=== PATIENT | male | born 1950 | race Caucasian/White ===

== ENCOUNTER 2024-08-10 12:09 | Day surgery (SDC) | payer MEDICARE ==
[2024-08-06 15:06] LABS: BASOPHILS # (AUTO) 0.1 X10'3 (0-0.2); BASOPHILS % (AUTO) 0.8 % (0-1); EOSINOPHILS # (AUTO) 0.2 X10'3 (0-0.9); EOSINOPHILS % (AUTO) 1.7 % (0-6); LYMPHOCYTES # (AUTO) 2.1 X10'3 (1.1-4.8); LYMPHOCYTES % (AUTO) 23.3 % (21-51); MEAN CORPUSCULAR HEMOGLOBIN 31.5 PG (27.0-31.0); MEAN CORPUSCULAR HGB CONC 35.5 g/dL (33.0-36.5); MEAN CORPUSCULAR VOLUME 88.6 FL (78-98); MEAN PLATELET VOLUME 6.9 FL (7.4-10.4); MONOCYTES # (AUTO) 0.8 X10'3 (0-0.9); MONOCYTES % (AUTO) 9.2 % (2-12); NEUTROPHILS # (AUTO) 5.8 X10'3 (1.8-7.7); PRE OP HEMATOCRIT 43.4 % (42.0-52.0); PRE OP HEMOGLOBIN 15.4 g/dL (14.0-17.9); PRE OP PLATELET COUNT 301 X10'3 (140-440); PRE OP WHITE BLOOD COUNT 8.9 10'3 (4.8-10.8); RED CELL DISTRIBUTION WIDTH 12.8 % (11.5-14.5)
[2024-08-06 15:14] LABS: ALBUMIN 3.9 G/DL (3.4-5.0); ALKALINE PHOSPHATASE 70 IU/L (46-116); BLOOD UREA NITROGEN 23 MG/DL (7-18); BUN/CREATININE RATIO 27.7 (10.0-20.0); CALCIUM 9.1 MG/DL (8.5-10.1); CHLORIDE 102 MMOL/L (99-107); CREATININE 0.83 MG/DL (0.60-1.10); PRE OP ALT 33 U/L (30-65); PRE OP ANION GAP 9 (8-16); PRE OP AST 24 U/L (10-37); PRE OP BILIRUB, TOTAL 0.5 MG/DL (0.0-1.0); PRE OP GLUCOSE 98 MG/DL (70-104); PRE OP POTASSIUM 4.2 MMOL/L (3.4-5.1); PRE OP SODIUM 140 MMOL/L (135-145); TOTAL CARBON DIOXIDE 28.9 MMOL/L (24-32); TOTAL PROTEIN 7.7 G/DL (6.4-8.2); eGFR 90 ML/MIN
[2024-08-10] VITALS (9 sets, daily range): BP systolic 133–160; BP diastolic 71–94; PULSE 59–75; RESP 14–42; TEMP 98.9; O2SAT 90–98
[~2024-08-10] VITALS: Ht 165.1 cm; Wt 88.0 kg
[2024-08-10] MEDS: ceFAZolin 2gm in dextrose, iso 50 ML IV ONE (05:30)
[~2024-08-10 12:09] MED LIST: AMLO5TAB16 PO; FMLOS EACHEYE; HYDR25TA4 PO; LISI10TA27 PO; OMEP40CA21 PO; PRAV40TA3 PO
[2024-08-10] MEDS: famotidine 20mg tablet PO ONE (12:30)
[2024-08-10] MEDS: ringers solution, lacted 1,000 ML IV SCH (12:30)
[2024-08-10] MEDS ORDERED: meperidine/PF 25mg/ml syringe IV PRN ×2 (13:25)
[2024-08-10] MEDS ORDERED: morphine 4 MG/ML inj SYRINge IV PRN (13:25)
[2024-08-10] MEDS ORDERED: proCHLORperazine 10 MG/2 ml inj IV PRN (13:25)
[2024-08-10] MEDS ORDERED: ringers solution, lacted 1,000 ML IV SCH (13:25)
[2024-08-10] MEDS ORDERED: morphine 2 MG/ML inj. syringe IV PRN (13:25)
[2024-08-10] MEDS ORDERED: ondansetron/PF 4mg/2ml inj IV PRN (13:25)
[2024-08-10] MEDS ORDERED: LIDOcaine 1% (10mg/ml)w/preservative inj. 20ml MDV ONE (13:55)
[2024-08-10] MEDS ORDERED: BUPIVAcaine 2.5mg/ml inj 50ml vial (contains preservative) ONE (13:55)
[2024-08-10] MEDS ORDERED: BUPIVACAINE liposomal/PF 13.3 MG/ML vial IM ONE (13:56)
[2024-08-10] MEDS ORDERED: sevoflurane 250ml liquid IH ONE (14:19)
[2024-08-10] MEDS ORDERED: fentaNYL/PF 50MCG/1 ML 2ML syringe ONE (14:24)
[2024-08-10] MEDS ORDERED: midazolam 1 mg/ML 2ml injection ONE (14:24)
[2024-08-10] MEDS ORDERED: propofol inj 20 ML IV ONE (14:26)
[2024-08-10] MEDS: BUPIVAcaine 2.5mg/ml inj 50ml vial (contains preservative) SQ ONE (14:37)
[2024-08-10] MEDS ORDERED: rocuronium 10mg/ml inj IV ONE (15:29)
[2024-08-10] MEDS ORDERED: dexamethasone sod phosphate 4mg/ml inj. ONE (15:29)
[2024-08-10] MEDS ORDERED: ondansetron/PF 4mg/2ml inj ONE (15:29)
[2024-08-10] MEDS ORDERED: neostigmine methylsulfate 1 MG/ML 10ml vial ONE (15:31)
[2024-08-10] MEDS ORDERED: glycopyrrolate 0.2mg/ml inj ONE (15:31)
[2024-08-10] MEDS: meperidine/PF 25mg/ml syringe IV PRN (16:35)
[2024-08-10] MEDS: oxyCODONE/APAP 5-325mg tablet PO PRN (17:14)
== END 2024-08-10 17:35 | disposition home or self-care (01) ==
LOC: PAS 12:09
PROVIDERS: ATTEND Surgery
DX: K42.9 Umbilical hernia without obstruction or gangrene (principal); D17.0 Benign lipomatous neoplasm of skin and subcutaneous tissue of head, face and neck; M79.89 Other specified soft tissue disorders; E78.5 Hyperlipidemia, unspecified; I10 Essential (primary) hypertension; K21.9 Gastro-esophageal reflux disease without esophagitis; Z79.899 Other long term (current) drug therapy; Z96.653 Presence of artificial knee joint, bilateral
CPT/HCPCS: 21555; 36415; 49593; 80053; 82948; 85025; 93005; A4215; A4618; C1781; C9290; J0690; J1100; J2175; J2250; J2405; J2704; J2710; J3010; J3490; J7030; J7120; Z7506; Z7508; Z7512; Z7610

== ENCOUNTER 2024-11-17 10:43 | Outpatient (CLI) | payer MEDICARE | END 2024-11-17 23:59 | disposition home or self-care (01) | LOC: RAD 10:43 | PROVIDERS: ATTEND Orthopaedic Surgery | DX: M19.011 Primary osteoarthritis, right shoulder (principal) | CPT/HCPCS: 73200 ==